=== PATIENT | male | born 1950 | race Caucasian/White ===

== ENCOUNTER 2022-11-15 14:46 | Emergency (ER) | payer MEDICARE ==
[2022-11-15] MEDS ORDERED: methylPREDNISolone Sodium Succinate 125 MG/2 ML SDV IV ONE (14:51)
[2022-11-15] MEDS ORDERED: Famotidine 20 MG/2 ML SDV IVPUSH ONE (14:51)
[2022-11-15] MEDS ORDERED: diphenhydrAMINE 50 MG/ML SDV IVPUSH ONE (14:51)
[2022-11-15] MEDS ORDERED: Sodium Chloride 0.9% 1,000 ML IV SCH (15:00)
[2022-11-15 16:23] VITALS: BP 126/81; PULSE 74
== END 2022-11-15 17:00 | disposition home or self-care (01) ==
LOC: JP.ED 14:46
DX: T63.481A Toxic effect of venom of other arthropod, accidental (unintentional), initial encounter (principal); Z79.82 Long term (current) use of aspirin
CPT/HCPCS: 96374; 96375; 99281; J1200; J2930; J3490; J7030; 99282